=== PATIENT | female | born 1990 | race Caucasian/White ===

== ENCOUNTER 2022-04-23 19:36 | Emergency (ER) | payer OTHER ==
[~2022-04-23] VITALS: Ht 160 cm; Wt 88.5 kg
[2022-04-23 19:45] VITALS: BP 149/86
[2022-04-23] MEDS ORDERED: KETOROLAC 60 MG/2 ML VIAL IM ONE (20:10)
--- NOTE | 2022-04-23 20:30 | NUR ---
PT TAKEN TO BED 11
--- NOTE | 2022-04-23 20:30 | NUR ---
PT TO BED 11 WITH DAUGHTER
--- NOTE | 2022-04-23 20:30 | NUR ---
31 YO F BIB SELF WITH C/C OF 02/08 RT HIP PAIN S/P TURNED QUICKLY X NOVEMBER. STATES SHE HEARD A POP WHEN INJURY OCCURRED. PT STATES PAIN RAD TO BUTTOCK. PT STATES SHE HAS BEEN TAKING TYLENOL AND IBUPROFEN XTHIS MORNING WITH LITTLE RELIEF. PT STATES PAIN IS GETTING IN THE WAY OF ADLS. DENIES HX AND RX ALLERGY TO VICODINE
--- NOTE | 2022-04-23 20:32 | NUR ---
Dr. Amos examining patient.
[2022-04-23] MEDS ORDERED: ACET-8386 PO (20:44)
[2022-04-23] MEDS ORDERED: ONDA8TAB87 PO (20:44)
[2022-04-23 21:03] VITALS: BP 128/75
--- NOTE | 2022-04-23 21:03 | NUR ---
Patient discharged with v/s stable. Written and verbal after care instructions given and explained. Patient alert, oriented and verbalized understanding of instructions. Ambulatory with steady gait. All questions addressed prior to discharge. ID band removed. Patient advised to follow up with PMD. Rx of HYDROCODONE-ACETAMINOPHEN, AND ZOFRAN given. Patient educated on indication of medication including possible reaction and side effects. Opportunity to ask questions provided and answered.
== END 2022-04-23 21:03 | disposition home or self-care (01) ==
LOC: MED 19:36
DX: M25.552 Pain in left hip (principal); Z79.899 Other long term (current) drug therapy; Z98.890 Other specified postprocedural states; Z88.5 Allergy status to narcotic agent; Z88.6 Allergy status to analgesic agent
CPT/HCPCS: 81002; 81025; 96372; 99283; J1885

== ENCOUNTER 2023-01-08 12:36 | Emergency (ER) | payer OTHER ==
[~2023-01-08] VITALS: Ht 162.6 cm; Wt 87.5 kg
[~2023-01-08 12:36] MED LIST: ACET-8905 PO; ONDA8TAB87 PO
[2023-01-08 12:47] VITALS: BP 149/84
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
[2023-01-08 14:04] LABS: BASOPHILS % (AUTO) 0.2 % (0.0-2.0); EOSINOPHILS # (AUTO) 0.1 K/uL (0-0.4); EOSINOPHILS % (AUTO) 1.3 % (0.0-4.0); HEMOGLOBIN 12.7 g/dL (12.0-16.0); LYMPHOCYTES # (AUTO) 2.3 K/uL (2.5-16.5); LYMPHOCYTES % (AUTO) 24.8 % (20.5-51.1); MEAN CORPUSCULAR HEMOGLOBIN 28 pg (27-31); MEAN CORPUSCULAR HGB CONC 34 g/dL (33-37); MEAN CORPUSCULAR VOLUME 83.5 fL (80-94); MONOCYTES # (AUTO) 0.5 K/uL (0.8-1.0); MONOCYTES % (AUTO) 5.5 % (1.7-9.3); NEUTROPHILS # (AUTO) 6.2 K/uL (1.8-7.7); NEUTROPHILS % (AUTO) 68.2 % (42.2-75.2); PLATELET COUNT (AUTO) 411 K/uL (140-450); RED BLOOD CELL COUNT(AUTO) 4.56 MIL/uL (4.20-5.40); RED CELL DISTRIBUTION WIDTH 12.9 % (11.6-13.7); WHITE BLOOD COUNT (AUTO) 9.1 K/uL (4.8-10.8)
[2023-01-08 14:23] LABS: ALBUMIN 3.7 g/dL (3.4-5.0); ANION GAP 11.2 (8-16); CARBON DIOXIDE 26.3 mmol/L (21-32); CREATININE 0.9 mg/dL (0.6-1.3); POTASSIUM 4.5 mmol/L (3.5-5.1); TOTAL BILIRUBIN 0.2 mg/dL (0.0-1.0)
[2023-01-08] MEDS ORDERED: IBUP-2213 PO (16:07)
[2023-01-08] MEDS ORDERED: ACET-10509 PO (16:07)
--- NOTE | 2023-01-08 16:19 | NUR ---
Patient discharged with v/s stable. Written and verbal after care instructions given and explained. Patient alert, oriented and verbalized understanding of instructions. Ambulatory with steady gait. All questions addressed prior to discharge. ID band removed. Patient advised to follow up with PMD. Rx of ACETAMINOPHEN, IBUPROFEN given. Patient educated on indication of medication including possible reaction and side effects. Opportunity to ask questions provided and answered.
== END 2023-01-08 16:18 | disposition home or self-care (01) ==
LOC: MED 12:36
DX: N93.8 Other specified abnormal uterine and vaginal bleeding (principal)
CPT/HCPCS: 36415; 76830; 80053; 81025; 85025; 86900; 86901; 99284; Q0092